=== PATIENT | male | born 1980 | race Caucasian/White ===

== ENCOUNTER → 2018-10-08 | Day surgery (SDC) | payer BC ==
[~2018-10-08] VITALS: Ht 175.3 cm; Wt 89.4 kg
[~2018-10-08] MED LIST: ACETAMINOPHEN 325 MG TABLET. PO ONE; BUPIVAC MPF-EPI 0.5%-1:200000 30 ML VIAL. ONE; DESFLURANE 31 TO 60 MINUTES IH ONE; DEXAMETHASONE SOD PHOS 20 MG/5 ML VIAL. ONE; GLYCOPYRROLATE 1 MG/5 ML VIAL. ONE; HYDROmorphone 2 MG/ML VIAL IV PRN; IV RINGERS,LACTATED 1000ML 1,000 ML IV SCH; LIDOCAINE 1% PF 2 ML VIAL. ID PRN; LIDOCAINE 2% PF Vial for OR 5 ML VIAL. ONE; MORPHINE SULFATE 2 MG/ML VIAL. IV PRN; NEOSTIGMINE METHYLSULFATE 5 MG/5 ML SYRINGE. ONE; ONDANSETRON PF 4 MG/2 ML VIAL. IV PRN; ONDANSETRON PF 4 MG/2 ML VIAL. ONE; OXYC1TAB15 PO; PROCHLORPERAZINE 10 MG/2 ML VIAL. IV PRN; PROPOFOL 20 ML IV ONE; ROCURONIUM 50 MG/5 ML VIAL. ONE; SUCCINYLCHOLINE 200 MG/10 ML VIAL. ONE; fentaNYL PF VIAL 100 MCG/2 ML VIAL IV PRN; fentaNYL PF VIAL 100 MCG/2 ML VIAL ONE; oxyCODONE/APAP 5/325 1 TAB TABLET PO ONE
--- NOTE | 2018-10-08 13:55 | PDOC4 ---
Operative Note Operative Note Date: 10/08/2018 Preoperative diagnosis: Right inguinal hernia Postoperative diagnosis: Same Procedure: Robotic-assisted laparoscopic right hernia repair with mesh Surgeon: Kyle Specimen: None Dictation: Patient is a 37-year-old male is complained of a painful bulge in his right groin procedure of robotic-assisted laparoscopic right inguinal hernia repair with mesh was explained to the patient detail was benefits were also discussed including bleeding infection injury to intra-abdominal contents possibly necessitating further or open operations. The patient seemed to understanding and gave verbal and written consent to have the procedure performed. The patient was taken to the operating room placed in the supine position general anesthesia was initiated once patient was asleep and intubated his abdomen was prepped and draped in the usual sterile fashion using ChloraPrep and area just above the umbilicus was injected with quarter percent Marcaine with epinephrine incision was made 11 blade scalpel and a Veress needle was placed within the abdomen creating a pneumoperitoneum. A 8 mm da Re port was placed and a 30 camera was placed within the abdomen which was inspected no other abnormalities were noted there was a hernia in the right groin at this point a 8 mm da Re port was placed in the left abdomen and one in the right mid abdomen da Re robot was then brought in and docked to all port sites. Surgery went to the robotic console using a grasper and Endo Jonathan scissors the peritoneum over the right groin was incised a window was propagated within the peritoneum exposing the hernia the hernia defect and its contents were reduced at this point a large Bard 3-D max mesh for the right side was placed over the defect and the peritoneum was closed over the mesh with a running 20V LOC absorbable suture. The pneumoperitoneum was reduced all ports removed the robot was undocked and the patient also can incisions were then closed with 4-0 subcuticular Monocryl Mastisol Steri-Strips and island dressings were applied. Patient was awakened and extubated in the operating room taken to recovery in stable condition all sponge instrument needle counts listed as correct estimated blood loss 5 mL CANDY SKY MD Oct 08, 2018 13:54
--- NOTE | 2018-10-08 13:55 | DISCH ---
DISCHARGE INSTRUCTIONS Condition on Discharge Condition on Discharge: Stable Activity After Discharge Activity Instructions for Disc: Avoid exertion Other activity instructions: no lifting more than 20 pounds for 2 weeks Diet after Discharge Diet after Discharge: Regular Wound Incision Care Other wound/incision instructi: May shower in 24 hours Contacting the DRSharon after DC Call your doctor for: If your condition worsens Follow-Up Follow up with: Dr. Sky in 2 weeks CANDY SKY MD Oct 08, 2018 13:55
[2018-10-08 14:48] VITALS: BP 91/59
== END | disposition home or self-care (01) ==
LOC: SURG 10:34
PROVIDERS: ATTEND Surgery
DX: K40.90 Unilateral inguinal hernia, without obstruction or gangrene, not specified as recurrent (principal); Z72.89 Other problems related to lifestyle; Z82.49 Family history of ischemic heart disease and other diseases of the circulatory system; Z79.1 Long term (current) use of non-steroidal anti-inflammatories (NSAID); Z79.899 Other long term (current) drug therapy
CPT/HCPCS: 49650; A7015; C1781; J0330; J0690; J1100; J2001; J2405; J2704; J2710; J3010; J3490; J7120; S2900